=== PATIENT | female | born 1995 | race Hispanic/Latino ===

== ENCOUNTER 2023-05-09 09:50 | Emergency (ER) | payer OTHER ==
[~2023-05-09] VITALS: Ht 170.2 cm; Wt 77.1 kg
[2023-05-09 10:26] LABS: ADD UA MICROSCOPIC YES; APPEARANCE,URINE CLOUDY (CLEAR); BILIRUBIN,URINE NEGATIVE (NEGATIVE); COLOR,URINE BROWN (YELLOW); GLUCOSE, URINE (UA) NEGATIVE (NEGATIVE); KETONES,URINE 5 mg/dL (NEGATIVE); LEUKOCYTE ESTERASE ,URINE 25 Leu/uL (NEGATIVE); NITRATE,URINE NEGATIVE (NEGATIVE); OCCULT BLOOD,URINE LARGE (NEGATIVE); PROTEIN,URINE 30 mg/dL (NEGATIVE); UROBILINOGEN,URINE 0.2 mg/dL (0.2-1.0)
[2023-05-09 10:27] LABS: MUCUS,URINE RARE LPF (None Seen); RBC,URINE TNTC /HPF (0-1); SQUAMOUS EPITHELIAL CELL,UR RARE /HPF (0-2)
[2023-05-09 10:28] LABS: HCG,QUALITATIVE URINE NEGATIVE (NEGATIVE)
[2023-05-09] MEDS ORDERED: SULF1TAB42 PO (10:36)
[2023-05-09] MEDS ORDERED: CEFTRIAXONE 1G VIAL IM ONE (11:00)
[2023-05-09 11:10] VITALS: BP 124/75; PULSE 89; RESP 20; O2SAT 99
== END 2023-05-09 11:23 | disposition home or self-care (01) ==
LOC: EDH 09:50
DX: N39.0 Urinary tract infection, site not specified (principal); F32.A Depression, unspecified; F20.9 Schizophrenia, unspecified; Z98.890 Other specified postprocedural states
CPT/HCPCS: 99283; 87088; 81001; 81025; 96372; J0696